=== PATIENT | male | born 1990 | race Caucasian/White ===

== ENCOUNTER 2017-12-25 15:11 | Emergency (ER) | payer MEDICAID ==
[~2017-12-25] VITALS: Ht 185.4 cm; Wt 133.5 kg
[~2017-12-25 15:11] MED LIST: ECOTRIN81 MG PO; GLIPIZIDE5 MG PO; GLU5 PO; LANTUS SOLOS100 U/M1 SQ; LEVEMIR100 U/M1 SQ; METFORMIN HCL1000 MG PO; SIMVASTATIN10 M1 PO
[2017-12-25 15:27] VITALS: Ht 185.4 cm; Wt 133.5 kg
[2017-12-25 16:55] LABS: BASOPHIL % 0.4 % (0-2); PLATELET COUNT 316 x10^3mcL (130-400); RED CELL DISTRIBUTION WIDTH 13.9 % (11.5-14.5)
[2017-12-25 17:17] LABS: CALCIUM 9.2 mg/dL (8.5-10.1); CARBON DIOXIDE 25.8 mmol/L (21-32); CHLORIDE SERUM 100 mmol/L (98-107); CREATININE SERUM 0.9 mg/dL (0.7-1.3); GFR1 > 60 mL/min; GLUCOSE SERUM 343 mg/dL (74-106); POTASSIUM SERUM 3.8 mmol/L (3.5-5.1); SODIUM SERUM 135 mmol/L (136-145)
[2017-12-25 17:21] LABS: ALBUMIN 3.9 g/dL (3.4-5.0); ALKALINE PHOSPHATASE 116 U/L (46-116); ALT/SGPT 19 U/L (16-63); AST/SGOT 9 U/L (15-37); BILIRUBIN TOTAL 0.3 mg/dL (0.20-1.00); LIPASE 201 IU/L (73-393)
[2017-12-25 17:23] LABS: TOTAL PROTEIN, SERUM 8.3 g/dL (6.4-8.2)
[2017-12-25 18:12] VITALS: BP 134/81
== END 2017-12-25 18:59 | disposition home or self-care (01) ==
LOC: ED 15:11
PROVIDERS: Emergency Medicine
DX: E11.65 Type 2 diabetes mellitus with hyperglycemia (principal); Z91.14 Patient's other noncompliance with medication regimen
CPT/HCPCS: 82962; J7030; Q0092

== ENCOUNTER 2018-03-21 01:08 | Emergency (ER) | payer MEDICAID ==
[~2018-03-21] VITALS: Ht 182.9 cm; Wt 127.9 kg
[2018-03-21 01:11] VITALS: Ht 182.9 cm; Wt 127.9 kg
[2018-03-21 02:11] LABS: CALCIUM 8.6 mg/dL (8.5-10.1); CARBON DIOXIDE 27.3 mmol/L (21-32); CHLORIDE SERUM 102 mmol/L (98-107); CREATININE SERUM 0.8 mg/dL (0.7-1.3); GFR1 > 60 mL/min; GLUCOSE SERUM 261 mg/dL (74-106); SODIUM SERUM 137 mmol/L (136-145)
[2018-03-21 03:55] VITALS: BP 125/68
[2018-03-21 04:16] LABS: AMPHETAMINE QUAL UR NONE DETECTED (See below)
== END 2018-03-21 03:50 | disposition home or self-care (01) ==
LOC: ED 01:08
PROVIDERS: Emergency Medicine
DX: E11.65 Type 2 diabetes mellitus with hyperglycemia (principal); R20.2 Paresthesia of skin; Z71.6 Tobacco abuse counseling
CPT/HCPCS: 36415; 99406

== ENCOUNTER 2019-01-28 12:46 | Emergency (ER) | payer MEDICAID | END 2019-01-28 18:29 | disposition home or self-care (01) | LOC: ED 12:46 ==

== ENCOUNTER 2019-03-17 20:11 | Inpatient (IN) | payer MEDICAID ==
[~2019-03-17] VITALS: Ht 182.9 cm; Wt 133.0 kg
[2019-03-17 20:19] VITALS: Ht 182.9 cm; Wt 133.0 kg
[2019-03-17 20:55] LABS: BASOPHIL % 0.7 % (0-2); PLATELET COUNT 264 x10^3mcL (130-400); RED CELL DISTRIBUTION WIDTH 13.4 % (11.5-14.5)
[2019-03-17 20:56] LABS: microscopic required? YES; urine erythrocyte TRACE (NEGATIVE)
[2019-03-17 21:19] LABS: ALKALINE PHOSPHATASE 137 U/L (46-116); ALT/SGPT 20 U/L (16-63); AMYLASE 53 U/L (25-115); AST/SGOT 6 U/L (15-37); BILIRUBIN TOTAL 0.6 mg/dL (0.20-1.00); CALCIUM 8.9 mg/dL (8.5-10.1); CARBON DIOXIDE 14.4 mmol/L (21-32); CHLORIDE SERUM 98 mmol/L (98-107); CREATININE SERUM 1.1 mg/dL (0.7-1.3); GFR1 > 60 mL/min; LIPASE 143 IU/L (73-393); POTASSIUM SERUM 3.8 mmol/L (3.5-5.1); SODIUM SERUM 134 mmol/L (136-145)
[2019-03-17 21:22] LABS: GLUCOSE SERUM 491 mg/dL (74-106)
[2019-03-18] VITALS (7 sets, daily range): BP systolic 95–141; BP diastolic 45–76
[2019-03-18 00:46] LABS: CALCIUM 8.2 mg/dL (8.5-10.1); CARBON DIOXIDE 21.7 mmol/L (21-32); CHLORIDE SERUM 106 mmol/L (98-107); CREATININE SERUM 0.9 mg/dL (0.7-1.3); GFR1 > 60 mL/min; GLUCOSE SERUM 256 mg/dL (74-106); MAGNESIUM 1.7 mg/dL (1.8-2.4); POTASSIUM SERUM 3.6 mmol/L (3.5-5.1); SODIUM SERUM 140 mmol/L (136-145)
[2019-03-18 04:31] LABS: BASOPHIL % 0.3 % (0-2); PLATELET COUNT 233 x10^3mcL (130-400); RED CELL DISTRIBUTION WIDTH 13.3 % (11.5-14.5)
[2019-03-18 04:40] LABS: CALCIUM 8.4 mg/dL (8.5-10.1); CARBON DIOXIDE 19.8 mmol/L (21-32); CHLORIDE SERUM 107 mmol/L (98-107); CREATININE SERUM 0.8 mg/dL (0.7-1.3); GFR1 > 60 mL/min; GLUCOSE SERUM 172 mg/dL (74-106); MAGNESIUM 1.8 mg/dL (1.8-2.4); SODIUM SERUM 141 mmol/L (136-145)
[2019-03-18 09:02] LABS: CALCIUM 8.6 mg/dL (8.5-10.1); CARBON DIOXIDE 22.1 mmol/L (21-32); CHLORIDE SERUM 108 mmol/L (98-107); CREATININE SERUM 0.8 mg/dL (0.7-1.3); GFR1 > 60 mL/min; GLUCOSE SERUM 135 mg/dL (74-106); MAGNESIUM 1.7 mg/dL (1.8-2.4); PHOSPHOROUS 2.3 mg/dL (2.5-4.9); SODIUM SERUM 141 mmol/L (136-145)
[2019-03-18 09:07] LABS: POTASSIUM SERUM 2.8 mmol/L (3.5-5.1)
[2019-03-18 11:59] LABS: CALCIUM 8.6 mg/dL (8.5-10.1); CARBON DIOXIDE 21.1 mmol/L (21-32); CHLORIDE SERUM 107 mmol/L (98-107); CREATININE SERUM 0.6 mg/dL (0.7-1.3); GFR1 > 60 mL/min; GLUCOSE SERUM 141 mg/dL (74-106); MAGNESIUM 1.7 mg/dL (1.8-2.4); PHOSPHOROUS 2.4 mg/dL (2.5-4.9); SODIUM SERUM 140 mmol/L (136-145)
[2019-03-18 12:24] LABS: POTASSIUM SERUM 2.8 mmol/L (3.5-5.1)
[2019-03-19 05:29] VITALS: BP 131/62
[2019-03-19 07:25] LABS: BASOPHIL % 0.4 % (0-2); PLATELET COUNT 233 x10^3mcL (130-400); RED CELL DISTRIBUTION WIDTH 13.7 % (11.5-14.5)
[2019-03-19 07:31] LABS: CALCIUM 8.3 mg/dL (8.5-10.1); CARBON DIOXIDE 21.2 mmol/L (21-32); CHLORIDE SERUM 104 mmol/L (98-107); CREATININE SERUM 0.7 mg/dL (0.7-1.3); GFR1 > 60 mL/min; GLUCOSE SERUM 231 mg/dL (74-106); MAGNESIUM 1.7 mg/dL (1.8-2.4); PHOSPHOROUS 3.4 mg/dL (2.5-4.9); SODIUM SERUM 139 mmol/L (136-145)
[2019-03-19 08:32] VITALS: BP 140/88
[2019-03-19 08:33] VITALS: BP 157/91
[2019-03-19 09:23] LABS: CHOLESTEROL/HDL RATIO 3.5
[2019-03-19] MEDS ORDERED: METFORMIN HCL1000 MG PO (10:26)
[2019-03-19] MEDS ORDERED: GLUCOTROL5 MG PO (10:26)
[2019-03-19] MEDS ORDERED: ACCU CHEK COMP MC (10:26)
[2019-03-19 13:55] VITALS: BP 131/99
== END 2019-03-19 15:15 | disposition home or self-care (01) | DRG 420 ==
LOC: ED 20:11 → IC 22:20 → DU 22:20 → IC 03-18 00:40 → DU 03-18 18:19
PROVIDERS: Emergency Medicine; Internal Medicine; ADMIT General Practice
DX: E11.10 Type 2 diabetes mellitus with ketoacidosis without coma (principal); N17.0 Acute kidney failure with tubular necrosis; E87.1 Hypo-osmolality and hyponatremia; E87.6 Hypokalemia; E83.42 Hypomagnesemia; E83.39 Other disorders of phosphorus metabolism; F12.10 Cannabis abuse, uncomplicated; R80.9 Proteinuria, unspecified; E66.9 Obesity, unspecified; Z79.4 Long term (current) use of insulin; Z68.38 Body mass index [BMI] 38.0-38.9, adult; Z79.84 Long term (current) use of oral hypoglycemic drugs; Z91.14 Patient's other noncompliance with medication regimen
CPT/HCPCS: 36600; 82962; G0378; J1815; J3475; J3480; J3490; J7030; Q0092

== ENCOUNTER 2019-03-21 22:16 | Emergency (ER) | payer MEDICAID ==
[~2019-03-21] VITALS: Ht 185.4 cm; Wt 134.7 kg
[~2019-03-21 22:16] MED LIST changes: +ACCU CHEK COMP MC; +GLUCOTROL5 MG PO
[2019-03-21 22:20] VITALS: Ht 185.4 cm; Wt 134.7 kg
[2019-03-21 22:38] VITALS: BP 145/86
== END 2019-03-21 22:42 | disposition home or self-care (01) ==
LOC: ED 22:16
DX: I80.8 Phlebitis and thrombophlebitis of other sites (principal); E11.9 Type 2 diabetes mellitus without complications; R03.0 Elevated blood-pressure reading, without diagnosis of hypertension

== ENCOUNTER 2019-06-20 20:25 | Inpatient (IN) | payer MEDICAID ==
[~2019-06-20] VITALS: Ht 185.4 cm; Wt 120.3 kg
[2019-06-20 21:18] VITALS: Ht 185.4 cm; Wt 120.3 kg
--- NOTE | 2019-06-20 21:37 | NUR ---
PT AMBULATORY TO ED BED 12, STEADY GAIT, NAD NOTED.
[2019-06-20 21:43] LABS: PLATELET COUNT 246 x10^3mcL (130-400); RED CELL DISTRIBUTION WIDTH 14.1 % (11.5-14.5)
[2019-06-20 22:01] LABS: CALCIUM 8.3 mg/dL (8.5-10.1); CARBON DIOXIDE 13.2 mmol/L (21-32); CHLORIDE SERUM 96 mmol/L (98-107); CREATININE SERUM 0.8 mg/dL (0.7-1.3); GFR1 > 60 mL/min; GLUCOSE SERUM 389 mg/dL (74-106); POTASSIUM SERUM 3.9 mmol/L (3.5-5.1); SODIUM SERUM 133 mmol/L (136-145)
--- NOTE | 2019-06-20 22:01 | NUR ---
PT PRESENTS TO THE ED TODAY WITH C/C OF DIZZINESS AND GENERALIZED WEAKNESS. PT REPORTS THAT HE IS A DIABETIC AND IS COMPLIANT WITH MEDICATIONS. REPORTS FEELING DIZZY AND GEN WEAK X2 DAYS. PT IS AWAKE AND ALERT, RESP E/U, NAD NOTED.
[2019-06-20 22:06] LABS: ALKALINE PHOSPHATASE 148 U/L (46-116); BILIRUBIN TOTAL 0.68 mg/dL (0.20-1.00); TOTAL PROTEIN, SERUM 8.2 g/dL (6.4-8.2)
[2019-06-20 22:19] LABS: AST/SGOT 37 U/L (15-37)
[2019-06-20 23:00] LABS: ALT/SGPT 35 U/L (16-63)
--- NOTE | 2019-06-20 23:33 | NUR ---
2ND IV BOLUS INITIATED PER ORDER, PT VERBALIZED UNDERSTANDING PRIOR TO ADMINISTRATION. PT IS AWAKE AND ALERT, RESP E/U, LAYING COMFORTABLY IN GURNEY, CALL LIGHT IN REACH. NAD NOTED.
[2019-06-21] VITALS (7 sets, daily range): BP systolic 106–146; BP diastolic 64–83
--- NOTE | 2019-06-21 00:01 | NUR ---
DR SAHNI AT BEDSIDE TO SPEAK WITH PT REGARDING PLAN OF CARE FOR ADMISSION.
--- NOTE | 2019-06-21 00:05 | NUR ---
INSULIN DRIP INITIATED PER ORDER, PT VERBALIZED UNDERSTANDING OF MEDICATION PRIOR TO ADMINISTRATION. PER DR SAHNI, INITIATED INSULIN GTT AT 8 UNITS/HR.
[2019-06-21] MEDS ORDERED: GLUCOTROL5 MG PO (00:06)
--- NOTE | 2019-06-21 00:11 | NUR ---
REPORT CALLED TO FREDRICK, OVERCOILER TO ASSUME CARE FOR PT.
--- NOTE | 2019-06-21 00:39 | NUR ---
PT TRANSPORTED TO ICU AT THIS TIME. PT IS AWAKE AND ALERT, RESP E/U, NO COMPLAINTS OF PAIN. PT VERBALIZED UNDERSTANDING OF PLAN OF CARE. MYSELF AND EMT JOVANA TRANSPORTED PT VIA GURNEY TO ICU.
--- NOTE | 2019-06-21 00:40 | NUR ---
RECEIVED PT FROM ER VIA [facility] ACCOMPANIED BY ERMIAS RN AND JOVANA EMT. PT AMBULATED FROM THE [facility] TO BED 6 WITH A STEADY GAIT. PT CONNECTED TO FULL LUNCHROOM AIDE, VITALS READING: HR 83, NIBP 146/83 MAP 104, RR 14, SPO2 100%, TEMP 98.3. PT IS A/OX4. SPEECH IS CLEAR. ABLE TO MAKE NEEDS KNOWN/FOLLOW SIMPLE COMMANDS. DENIES CARD/DIZZINESS/BLURRY VISION. BREATHING IS E/U ON RA. LUNGS SOUND CLEAR BILAT. SYMMETRICAL CHEST EXPANSION NOTED. DENIES ANY SOB. PALPABLE PULSES X4 EXTREMITIES. SKIN IS WARM AND DRY. NO EDEMA NOTED. CAP REFILL < 3 SECS[address] IV IN PL[address] WITH NO S/S OF INFILTRATION NOTED. INSULIN GTT INITIATED AT 0.1 UNITS/KG/HR. NS INFUSING @ 250 ML/HR. COLOR CONSISTENT WITH ETHNICITY. PT C/O GENERALIZED WEAKNESS. ACTIVE FULL ROM X4 EXTREMITIES. ABD IS SOFT, ROUND, NONTENDER TO PALPATION. BOWEL SOUNDS ACTIVE X4 QUADRANTS. PT STS HE HAD A BM YESTERDAY, FORMED/BROWN IN COLOR. PT VOIDS FREELY VIA URINAL. NO SCROTAL EDEMA/PENILE DISCHARGE NOTED. SKIN IS INTACT. PT ABLE TO REPOSITION SELF INDEPENDENTLY. PT ORIENTED TO ROOM AND USE OF CALL LIGHT. BED IN LOW POSITION. CALL LIGHT IN REACH. WILL CONT TO MONITOR
[2019-06-21 01:49] LABS: LIPASE 118 IU/L (73-393); MAGNESIUM 1.9 mg/dL (1.8-2.4); PHOSPHOROUS 3.4 mg/dL (2.5-4.9)
[2019-06-21 01:50] LABS: CALCIUM 7.4 mg/dL (8.5-10.1); CARBON DIOXIDE 16.6 mmol/L (21-32); CHLORIDE SERUM 103 mmol/L (98-107); CREATININE SERUM 0.8 mg/dL (0.7-1.3); GFR1 > 60 mL/min; GLUCOSE SERUM 255 mg/dL (74-106); MAGNESIUM 1.6 mg/dL (1.8-2.4); PHOSPHOROUS 2.2 mg/dL (2.5-4.9); POTASSIUM SERUM 3.3 mmol/L (3.5-5.1); SODIUM SERUM 138 mmol/L (136-145)
[2019-06-21 02:06] LABS: CHOLESTEROL 237 mg/dL (<200); HDL CHOLESTEROL 34 mg/dL (40-60); TRIGLYCERIDES 951 mg/dL (<150)
--- NOTE | 2019-06-21 03:05 | NUR ---
BS 158. NS TURNED OFF AT THIS TIME. D5 1/2NS INTIATED AT THIS TIME @ 150 ML/HR PER EMAR ORDER.
--- NOTE | 2019-06-21 04:03 | NUR ---
BS 132. D5 1/2NS TITRATED TO 200 ML/HR
--- NOTE | 2019-06-21 04:36 | NUR ---
FOAM RUBBER FABRICATOR AT BEDSIDE FOR BLOO DRAW
--- NOTE | 2019-06-21 05:03 | NUR ---
BS 130. INSULIN GTT TITRATED TO 250 ML/HR PER DKA PROTOCOL
[2019-06-21 05:14] LABS: BASOPHIL % 0.3 % (0-2); PLATELET COUNT 241 x10^3mcL (130-400); RED CELL DISTRIBUTION WIDTH 14.3 % (11.5-14.5)
[2019-06-21 05:33] LABS: CALCIUM 7.5 mg/dL (8.5-10.1); CARBON DIOXIDE 20.1 mmol/L (21-32); CHLORIDE SERUM 107 mmol/L (98-107); CREATININE SERUM 0.8 mg/dL (0.7-1.3); GFR1 > 60 mL/min; GLUCOSE SERUM 122 mg/dL (74-106); MAGNESIUM 1.7 mg/dL (1.8-2.4); PHOSPHOROUS 2.7 mg/dL (2.5-4.9); POTASSIUM SERUM 3.2 mmol/L (3.5-5.1); SODIUM SERUM 141 mmol/L (136-145)
--- NOTE | 2019-06-21 06:03 | NUR ---
BS 120. PT PROVIDED WITH A CUP OF ORANGE JUICE MIXED WITH SUGAR AT THIS TIME.
--- NOTE | 2019-06-21 07:10 | NUR ---
REPORT GIVEN TO MIHAELA GORDILLO FOR CONTINUITY OF CARE. ALL QUESTIONS/CONCERNS ADDRESSED. ENDORSING ALL CARE
--- NOTE | 2019-06-21 07:30 | NUR ---
PATIENT AWAKE AND ORIENTED TO PERSON, PLACE AND TIME. PATIENT DENIES HEADACHE OR DIZZINESS. BUBBA PUPILS WITH BRISK REACTION TO LIGHT; PERRLA. IVF D5 1/2 NS AT 250 ML/HR. REGULAR INSULIN DRIP AT 0.05 UNIT/KG/HR. TELE # 6 READS SINUS RHYTHMS. CALL LIGHT WITHIN REACH. SIDE RAILS UP X2. LETYTENT IS ON DKA PROTICOL.
[2019-06-21 08:19] LABS: CALCIUM 7.7 mg/dL (8.5-10.1); CARBON DIOXIDE 22.1 mmol/L (21-32); CHLORIDE SERUM 105 mmol/L (98-107); CREATININE SERUM 0.7 mg/dL (0.7-1.3); GFR1 > 60 mL/min; GLUCOSE SERUM 189 mg/dL (74-106); MAGNESIUM 1.7 mg/dL (1.8-2.4); PHOSPHOROUS 3.4 mg/dL (2.5-4.9); POTASSIUM SERUM 3.1 mmol/L (3.5-5.1); SODIUM SERUM 139 mmol/L (136-145)
--- NOTE | 2019-06-21 09:45 | NUR ---
DR. OSULLIVAN AND THE TEAM ARE MAKING ROUND TO SEE THE PATIENT. DR. OSULLIVAN IS INFORMED OF THE LAB RESULT K 3.1 AND MG 1.7; NEW ORDER TO REPLACE THE LEVELS RECEIVED. WILL CARRY OUT THE ORDER.
--- NOTE | 2019-06-21 11:55 | NUR ---
THE MAP COMPILER IS AT BEDSIDE DRAWING BLOOD.
[2019-06-21 12:25] LABS: CALCIUM 7.8 mg/dL (8.5-10.1); CARBON DIOXIDE 22.3 mmol/L (21-32); CHLORIDE SERUM 107 mmol/L (98-107); CREATININE SERUM 0.8 mg/dL (0.7-1.3); GFR1 > 60 mL/min; GLUCOSE SERUM 160 mg/dL (74-106); MAGNESIUM 1.6 mg/dL (1.8-2.4); PHOSPHOROUS 3.1 mg/dL (2.5-4.9); POTASSIUM SERUM 3.2 mmol/L (3.5-5.1); SODIUM SERUM 140 mmol/L (136-145)
--- NOTE | 2019-06-21 13:14 | NUR ---
Discount pharmacy card and list to low cost medical clinics given to patient by Leann.
--- NOTE | 2019-06-21 13:41 | NUR ---
THE ANION GAP < [address] OSULLIVAN WAS CALLED TO NOTIFIED OF THE THIS. NEW ORDER RECEIVED AND CARRIED OUT.
--- NOTE | 2019-06-21 14:49 | NUR ---
REPORT WAS GIVEN TO DUY ESTEVEZ FROM [facility] UNIT. CONCERNS ADDRESSED. THE PATIENT WILL BE TRANSFERRED TO ROOM 260B, [facility] UNIT.
--- NOTE | 2019-06-21 15:30 | NUR ---
THE PATIENT WAS TRANSFERRED TO ROOM 260B, [facility] UNIT VIA WHEELCHAIR IN STABLE CONDITION. ALL BELONGINGS WERE SENT UP TO THE ROOM WITH THE PATIENT.
--- NOTE | 2019-06-21 15:52 | NUR ---
RECEIVED PATIENT FROM ICU BED 6 FROM BRENNAN RN AT THIS TIME. PATIENT ABLE TO AMBULATE FROM WHEELCHAIR TO BED. NO APPARENT DISTRESS OR DISCOMFORT NOTED. PATIENT A/O X4 AND ABLE TO MAKE NEEDS KNOWN. PATIENT ABLE TO FOLLOW COMMANDS. BREATHING EVEN AND UNLABORED. NO RESPIRATORY DISTRESS NOTED. PATIENT DENIES SHORTNESS OF BREATH. TELE [address] (ST). PATIENT DENIES CHEST PAIN/PRESSURE AT THIS TIME. PULSES PALPABLE. NO EDEMA NOTED. BOWEL SOUNDS ACTIVE X4. PATIENT DENIES ABD PAIN, NAUSEA, AND VOMITING. PATIENT VOIDS FREELY WITH NO C/O BURNING/DISCOMFORT. SKIN CLEAN AND INTACT. PATIENT DENIES PAIN/DISCOMFORT AT THIS TIME. IV TO LAC PATENT AND INTACT INFUSING NORMAL SALINE. ALL QUESTIONS AND CONCERNS ADDRESSED. ALL NEEDS ATTENDED TO. WILL CONTINUE TO MONITOR
--- NOTE | 2019-06-21 17:09 | NUR ---
PATIENT BLOOD SUGAR 232 AT THIS TIME. 6 UNITS OF INSULIN COVERAGE REQUIRED. ALL NEEDS ATTENDED TO. WILL CONTINUE TO MONITOR
[2019-06-21 18:09] LABS: microscopic required? NO
[2019-06-21 18:13] LABS: urine erythrocyte NEGATIVE (NEGATIVE)
[2019-06-21 18:39] LABS: AMPHETAMINE QUAL UR NONE DETECTED (See below)
--- NOTE | 2019-06-21 18:46 | NUR ---
PATIENT RESTING COMFORTABLY IN BED AT THIS TIME WITH FAMILY MEMBERS AT BEDSIDE. NO APPARENT DISTRESS OR DISCOMFORT NOTED. IV PATENT AND INTACT TO LEFT AC INFUSING NORMAL SALINE AT 50ML/HR. ALL QUESTIONS AND CONCERNS ADDRESSED. ALL NEEDS ATTENDED TO. WILL ENDORSE ALL CARE TO DIRECTOR DIGITAL COMMUNICATIONS NURSE
--- NOTE | 2019-06-21 19:41 | NUR ---
RECEIVED PT IN BED AAO X4 VERBAL AMBULATORY NO S/SX OF HYPO/HYPERGLYCEMIA, VISION IS BETTER, NO HEADACHE OR DIZZINESS, FOLLOWS COMMANDS, DENIES PAIN NO DISTRESS LUNGS CTA, IVF NS INFUSING @ 60CC/HR IV ACCESS @ LAC PATENT NON INFIL SR/ST IN THE MONITOR TELE #2 SHIFT ASSESSMENT DONE, ATTENDED NEEDS, FAMILY AT BEDSIDE FOR VISIT CONT TO MONITOR.
--- NOTE | 2019-06-22 03:00 | NUR ---
SLEPT WELL WHEN ROUNDS MADE, NO S/SX OF PAIN OR DISCOMFORTS, NO HYPO OR HYPERGLYCEMIA, SR IN THE MONITOR.
[2019-06-22 05:42] VITALS: BP 116/64
[2019-06-22 06:06] LABS: BASOPHIL % 0.3 % (0-2); PLATELET COUNT 239 x10^3mcL (130-400); RED CELL DISTRIBUTION WIDTH 14.5 % (11.5-14.5)
--- NOTE | 2019-06-22 06:20 | NUR ---
BLD SUGAR 242 MG/DL COVERED WITH 6UNITS REG INSULIN PER SLIDING SCALE, NO SIGNIFICANT CHANGES, DENIES PAIN, SLEPT WELL, WILL ENDORSE TO INCOMING SHIFT FOR F/U CARE,
[2019-06-22 07:07] LABS: CHLORIDE SERUM 104 mmol/L (98-107); POTASSIUM SERUM 4.3 mmol/L (3.5-5.1); SODIUM SERUM 141 mmol/L (136-145)
[2019-06-22 07:08] LABS: CALCIUM 8.3 mg/dL (8.5-10.1); CARBON DIOXIDE 23.9 mmol/L (21-32); CREATININE SERUM 0.7 mg/dL (0.7-1.3); GFR1 > 60 mL/min; GLUCOSE SERUM 244 mg/dL (74-106); MAGNESIUM 1.6 mg/dL (1.8-2.4); PHOSPHOROUS 3.7 mg/dL (2.5-4.9)
--- NOTE | 2019-06-22 07:22 | NUR ---
ASSUMED CARE OF PATIENT. SEEN RESTING THIS MORNING WITH EQUAL AND UNLABORED RESPIRATIONS. NO APPARENT DISTRESS NOTED. IV TO LAC PATENT AND INFUSING NS AT 50ML/HR. WILL CONTINUE TO MONITOR.
[2019-06-22] MEDS ORDERED: LANTI SQ (08:13)
[2019-06-22 08:25] VITALS: BP 133/80
[2019-06-22 08:50] VITALS: BP 133/80
--- NOTE | 2019-06-22 09:21 | NUR ---
PATIENT DISCHARGE EDUCATION AND INSTRUCTION PROVIDED. EDUCATED ON DIABETES MANAGEMENT. IV TO LAC REMOVED WITH CATHETER INTACT. TELEMONITOR REMOVED. AWAITING PICKUP.
--- NOTE | 2019-06-22 09:38 | NUR ---
PATIENT LEFT UNIT WITH NO COMPLAINTS OF PAIN OR DISCOMFORT. LEFT WITH ALL BELONGINGS AND DISCHARGE PAPERWORK. ID BAND REMOVED.
== END 2019-06-22 09:38 | disposition home or self-care (01) | DRG 420 ==
LOC: ED 20:25 → IC 23:38 → DU 06-21 15:32
PROVIDERS: ADMIT General Practice
DX: E11.10 Type 2 diabetes mellitus with ketoacidosis without coma (principal); E87.1 Hypo-osmolality and hyponatremia; F12.10 Cannabis abuse, uncomplicated; F17.210 Nicotine dependence, cigarettes, uncomplicated; E66.9 Obesity, unspecified; Z68.33 Body mass index [BMI] 33.0-33.9, adult; Z79.84 Long term (current) use of oral hypoglycemic drugs; Z91.14 Patient's other noncompliance with medication regimen
CPT/HCPCS: 36600; 82962; 83880; 99406; C9113; G0378; J1815; J7030; Q0092

== ENCOUNTER 2019-08-20 15:37 | Emergency (ER) | payer MEDICAID ==
[~2019-08-20] VITALS: Ht 185.4 cm; Wt 117.0 kg
[~2019-08-20 15:37] MED LIST changes: +LANTI SQ
[2019-08-20 15:54] VITALS: BP 145/91; Ht 185.4 cm; Wt 117.0 kg
== END 2019-08-20 18:42 | disposition home or self-care (01) ==
LOC: ED 15:37
DX: L02.211 Cutaneous abscess of abdominal wall (principal); E11.9 Type 2 diabetes mellitus without complications; F17.210 Nicotine dependence, cigarettes, uncomplicated
CPT/HCPCS: 82962; J0696; J2001

== ENCOUNTER 2019-08-23 07:04 | Emergency (ER) | payer MEDICAID ==
[~2019-08-23] VITALS: Ht 185.4 cm; Wt 119.7 kg
[2019-08-23 07:10] VITALS: BP 124/37; Ht 185.4 cm; Wt 119.7 kg
== END 2019-08-23 08:19 | disposition home or self-care (01) ==
LOC: ED 07:04
DX: L02.211 Cutaneous abscess of abdominal wall (principal); E11.9 Type 2 diabetes mellitus without complications
CPT/HCPCS: 82962

== ENCOUNTER 2019-08-28 16:55 | Emergency (ER) | payer SELFPAY ==
[~2019-08-28] VITALS: Ht 185.4 cm; Wt 114.8 kg
[2019-08-28 17:05] VITALS: BP 126/67; Ht 185.4 cm; Wt 114.8 kg
== END 2019-08-28 18:43 | disposition home or self-care (01) ==
LOC: ED 16:55
DX: L02.211 Cutaneous abscess of abdominal wall (principal); Z48.01 Encounter for change or removal of surgical wound dressing; E11.9 Type 2 diabetes mellitus without complications

== ENCOUNTER 2019-09-19 21:17 | Inpatient (IN) | payer MEDICAID ==
[~2019-09-19] VITALS: Ht 185.4 cm; Wt 105.3 kg
[2019-09-19 22:39] LABS: microscopic required? NO
[2019-09-19 23:06] LABS: BASOPHIL % 0.4 % (0-2); PLATELET COUNT 174 x10^3mcL (130-400); RED CELL DISTRIBUTION WIDTH 13.2 % (11.5-14.5)
[2019-09-19 23:09] LABS: urine erythrocyte NEGATIVE (NEGATIVE)
[2019-09-19 23:18] LABS: ALKALINE PHOSPHATASE 130 U/L (46-116); ALT/SGPT 24 U/L (16-63); AST/SGOT 10 U/L (15-37); BILIRUBIN TOTAL 0.5 mg/dL (0.20-1.00); CALCIUM 7.9 mg/dL (8.5-10.1); CHLORIDE SERUM 96 mmol/L (98-107); GFR1 > 60 mL/min; MAGNESIUM 1.7 mg/dL (1.8-2.4); POTASSIUM SERUM 3.8 mmol/L (3.5-5.1); SODIUM SERUM 129 mmol/L (136-145); TOTAL PROTEIN, SERUM 6.5 g/dL (6.4-8.2)
[2019-09-19 23:22] LABS: ALBUMIN 3.2 g/dL (3.4-5.0)
[2019-09-19 23:24] LABS: GLUCOSE SERUM 645 mg/dL (74-106)
[2019-09-20] VITALS (7 sets, daily range): BP systolic 104–126; BP diastolic 61–75; Ht 185.4 cm; Wt 105.3 kg
[2019-09-20 00:39] LABS: CARBON DIOXIDE 11.5 mmol/L (21-32); CHLORIDE SERUM 98 mmol/L (98-107); CREATININE SERUM 0.9 mg/dL (0.7-1.3); GFR1 > 60 mL/min; MAGNESIUM 1.8 mg/dL (1.8-2.4); SODIUM SERUM 127 mmol/L (136-145)
[2019-09-20 00:47] LABS: GLUCOSE SERUM 555 mg/dL (74-106)
[2019-09-20 05:57] LABS: CALCIUM 8.2 mg/dL (8.5-10.1); CARBON DIOXIDE 15.7 mmol/L (21-32); CHLORIDE SERUM 105 mmol/L (98-107); CREATININE SERUM 0.8 mg/dL (0.7-1.3); GFR1 > 60 mL/min; GLUCOSE SERUM 195 mg/dL (74-106); MAGNESIUM 1.8 mg/dL (1.8-2.4); PHOSPHOROUS 2.2 mg/dL (2.5-4.9); SODIUM SERUM 136 mmol/L (136-145)
[2019-09-20 06:17] LABS: POTASSIUM SERUM 2.9 mmol/L (3.5-5.1)
[2019-09-20 08:43] LABS: CALCIUM 7.8 mg/dL (8.5-10.1); CARBON DIOXIDE 19.5 mmol/L (21-32); CHLORIDE SERUM 107 mmol/L (98-107); CREATININE SERUM 0.8 mg/dL (0.7-1.3); GFR1 > 60 mL/min; GLUCOSE SERUM 134 mg/dL (74-106); MAGNESIUM 1.7 mg/dL (1.8-2.4); PHOSPHOROUS 2.6 mg/dL (2.5-4.9); POTASSIUM SERUM 3.4 mmol/L (3.5-5.1); SODIUM SERUM 138 mmol/L (136-145)
[2019-09-20 08:45] LABS: BASOPHIL % 0.4 % (0-2); PLATELET COUNT 188 x10^3mcL (130-400); RED CELL DISTRIBUTION WIDTH 12.9 % (11.5-14.5)
[2019-09-20 12:57] LABS: CALCIUM 7.8 mg/dL (8.5-10.1); CARBON DIOXIDE 17.1 mmol/L (21-32); CHLORIDE SERUM 106 mmol/L (98-107); CREATININE SERUM 0.7 mg/dL (0.7-1.3); GFR1 > 60 mL/min; GLUCOSE SERUM 163 mg/dL (74-106); MAGNESIUM 1.6 mg/dL (1.8-2.4); PHOSPHOROUS 2.5 mg/dL (2.5-4.9); POTASSIUM SERUM 3.2 mmol/L (3.5-5.1); SODIUM SERUM 136 mmol/L (136-145)
[2019-09-20 17:02] LABS: CALCIUM 8.1 mg/dL (8.5-10.1); CARBON DIOXIDE 19.6 mmol/L (21-32); CHLORIDE SERUM 104 mmol/L (98-107); CREATININE SERUM 0.6 mg/dL (0.7-1.3); GFR1 > 60 mL/min; GLUCOSE SERUM 200 mg/dL (74-106); MAGNESIUM 1.7 mg/dL (1.8-2.4); PHOSPHOROUS 2.5 mg/dL (2.5-4.9); POTASSIUM SERUM 3.3 mmol/L (3.5-5.1); SODIUM SERUM 135 mmol/L (136-145)
[2019-09-20 19:46] LABS: CALCIUM 8.4 mg/dL (8.5-10.1); CARBON DIOXIDE 19.3 mmol/L (21-32); CHLORIDE SERUM 104 mmol/L (98-107); CREATININE SERUM 0.6 mg/dL (0.7-1.3); GFR1 > 60 mL/min; GLUCOSE SERUM 214 mg/dL (74-106); MAGNESIUM 1.8 mg/dL (1.8-2.4); PHOSPHOROUS 2.7 mg/dL (2.5-4.9); POTASSIUM SERUM 3.4 mmol/L (3.5-5.1); SODIUM SERUM 136 mmol/L (136-145)
[2019-09-21 01:18] LABS: CALCIUM 8.6 mg/dL (8.5-10.1); CARBON DIOXIDE 21.7 mmol/L (21-32); CHLORIDE SERUM 105 mmol/L (98-107); CREATININE SERUM 0.6 mg/dL (0.7-1.3); GFR1 > 60 mL/min; GLUCOSE SERUM 126 mg/dL (74-106); MAGNESIUM 1.8 mg/dL (1.8-2.4); PHOSPHOROUS 2.4 mg/dL (2.5-4.9); POTASSIUM SERUM 3.1 mmol/L (3.5-5.1); SODIUM SERUM 138 mmol/L (136-145)
[2019-09-21 03:00] VITALS: BP 104/66
[2019-09-21 05:25] LABS: BASOPHIL % 0.3 % (0-2); PLATELET COUNT 188 x10^3mcL (130-400); RED CELL DISTRIBUTION WIDTH 13.4 % (11.5-14.5)
[2019-09-21 05:36] LABS: CALCIUM 8.8 mg/dL (8.5-10.1); CARBON DIOXIDE 25.4 mmol/L (21-32); CHLORIDE SERUM 106 mmol/L (98-107); CREATININE SERUM 0.6 mg/dL (0.7-1.3); GFR1 > 60 mL/min; GLUCOSE SERUM 88 mg/dL (74-106); MAGNESIUM 1.9 mg/dL (1.8-2.4); PHOSPHOROUS 2.6 mg/dL (2.5-4.9); POTASSIUM SERUM 3.2 mmol/L (3.5-5.1); SODIUM SERUM 139 mmol/L (136-145)
[2019-09-21 07:35] VITALS: BP 99/59
[2019-09-21 08:50] LABS: CALCIUM 8.8 mg/dL (8.5-10.1); CHLORIDE SERUM 107 mmol/L (98-107); CREATININE SERUM 0.6 mg/dL (0.7-1.3); GFR1 > 60 mL/min; GLUCOSE SERUM 112 mg/dL (74-106); PHOSPHOROUS 2.7 mg/dL (2.5-4.9); POTASSIUM SERUM 3.1 mmol/L (3.5-5.1); SODIUM SERUM 139 mmol/L (136-145)
[2019-09-21 16:56] VITALS: BP 115/68
[2019-09-21 19:10] VITALS: BP 145/73
[2019-09-22 05:40] VITALS: BP 124/61
[2019-09-22 06:46] LABS: BASOPHIL % 0.3 % (0-2); PLATELET COUNT 172 x10^3mcL (130-400); RED CELL DISTRIBUTION WIDTH 13.6 % (11.5-14.5)
[2019-09-22 07:37] LABS: CARBON DIOXIDE 24.9 mmol/L (21-32); CHLORIDE SERUM 105 mmol/L (98-107); CREATININE SERUM 0.6 mg/dL (0.7-1.3); GFR1 > 60 mL/min; GLUCOSE SERUM 252 mg/dL (74-106); POTASSIUM SERUM 3.7 mmol/L (3.5-5.1); SODIUM SERUM 140 mmol/L (136-145)
[2019-09-22 07:40] VITALS: BP 112/61
[2019-09-22 10:43] VITALS: BP 112/61
[2019-09-22] MEDS ORDERED: METFORMIN HCL1000 MG PO (11:00)
[2019-09-22] MEDS ORDERED: GLUCOTROL10 MG PO (11:01)
[2019-09-22] MEDS ORDERED: LANTI SQ (11:28)
[2019-09-22] MEDS ORDERED: FREESTYLE LITE1 EAC1 MC (11:29)
[2019-09-22] MEDS ORDERED: FREESTYLE LANC1 EACH MC (11:30)
[2019-09-22] MEDS ORDERED: [UNRECOGNIZED DRUG - OTHER] MC (11:35)
[2019-09-22 12:22] VITALS: BP 117/67
[2019-09-22] MEDS ORDERED: GLUCOTROL5 MG PO (12:41)
== END 2019-09-22 13:06 | disposition home or self-care (01) | DRG 420 ==
LOC: ED 21:17 → IC 09-20 00:33 → DU 09-21 13:11
PROVIDERS: Emergency Medicine; ADMIT General Practice
DX: E11.10 Type 2 diabetes mellitus with ketoacidosis without coma (principal); E44.1 Mild protein-calorie malnutrition; R35.8 Other polyuria; T38.3X6A Underdosing of insulin and oral hypoglycemic [antidiabetic] drugs, initial encounter; Z91.120 Patient's intentional underdosing of medication regimen due to financial hardship; Y92.009 Unspecified place in unspecified non-institutional (private) residence as the place of occurrence of the external cause; Z68.31 Body mass index [BMI] 31.0-31.9, adult
CPT/HCPCS: 82962; G0378; J1815; J3480; J7030; Q0092

== ENCOUNTER 2020-11-18 07:26 | Emergency (ER) | payer MEDICAID ==
[~2020-11-18] VITALS: Ht 172.7 cm; Wt 105.2 kg
[~2020-11-18 07:26] MED LIST changes: +FREESTYLE LANC1 EACH MC; +FREESTYLE LITE1 EAC1 MC; +GLUCOTROL10 MG PO; +LIPI20 PO; +METER-CHECK1 EACH MC; +NASAL MIST126 ML; +[UNRECOGNIZED DRUG - OTHER] MC
[2020-11-18 07:38] VITALS: Ht 172.7 cm; Wt 105.2 kg
[2020-11-18 08:33] LABS: PLATELET COUNT 237 x10^3mcL (152-348)
[2020-11-18 08:34] LABS: BASOPHIL % 3.5 % (0.2-1.5)
[2020-11-18 09:21] LABS: CARBON DIOXIDE 25.6 mmol/L (21-32); CHLORIDE SERUM 100 mmol/L (98-107); CREATININE SERUM 0.6 mg/dL (0.7-1.3); GFR1 > 60 mL/min; GLUCOSE SERUM 369 mg/dL (74-106); SODIUM SERUM 137 mmol/L (136-145)
[2020-11-18 09:25] LABS: ALBUMIN 3.8 g/dL (3.4-5.0); ALKALINE PHOSPHATASE 111 U/L (46-116); ALT/SGPT 26 U/L (16-63); AST/SGOT 11 U/L (15-37); BILIRUBIN TOTAL 0.5 mg/dL (0.20-1.00); PHOSPHOROUS 3.6 mg/dL (2.5-4.9)
[2020-11-18 12:21] VITALS: BP 120/70
== END 2020-11-18 12:21 | disposition home or self-care (01) ==
LOC: ED 07:26
PROVIDERS: Emergency Medicine
DX: B37.49 Other urogenital candidiasis (principal); E11.65 Type 2 diabetes mellitus with hyperglycemia
CPT/HCPCS: 82962; J1815